=== PATIENT | female | born 1930 ===

== ENCOUNTER 2017-10-24 09:24 | Emergency (ER) | payer MEDICARE, OTHER ==
--- NOTE | 2017-10-24 11:39 | UC ---
UC General HPI - HPI Summary HPI Summary: pt visiting her son. she has been having frequent urination since last pm. denies fever, abdominal pain, burning with urination. no vaginal d/c. hx DM. avg BS is 120. - History of Current Complaint Stated Complaint: URINARY Time Seen by Provider: 10/24/17 11:26 Hx Obtained From: Patient, Family/[employer] Timing: Constant Pain Intensity: 0 Aggravating: nothing Alleviating: nothing Associated Signs & Symptoms: Negative: Abdominal Pain, Back Pain, Dysuria, Fever , Nausea - Allergy/Home Medications Allergies/Adverse Reactions: Allergies Allergy/AdvReac Type Severity Reaction Status Date / Time No Known Allergies Allergy Verified 10/24/17 11:37 Home Medications: Home Medications Brimonidine P 0.1%(NF) [Alphagan P 0.1% (NF)] 1 drop BOTH EYES TID 10/24/17 [ History Confirmed 10/24/17] Dorzolamide/Timolol OPTH (NF) [Cosopt (NF)] 1 drop BOTH EYES BEDTIME 10/24/17 [ History Confirmed 10/24/17] FLUoxetine CAP* [Prozac CAP*] 10 mg PO DAILY 10/24/17 [History Confirmed ] Glimepiride 1 mg PO DAILY 10/24/17 [History Confirmed 10/24/17] Lactic Acid CR 12% (NF) [Lac-Hydrin 12% (NF)] 12 % EX BID PRN 10/24/17 [History Confirmed 10/24/17] Pravastatin Sodium 40 mg PO DAILY 10/24/17 [History Confirmed 10/24/17] PMH/Surg Hx/FS Hx/Imm Hx Previously Healthy: No - Hx ca breast, colon and uterine. Endocrine History: Diabetes - Surgical History Surgical History: Yes - breast, uterine, colon. - Family History Known Family History: Positive: Unknown - Social History Occupation: Retired Lives: Alone Alcohol Use: None Substance Use Type: None Review of Systems Constitutional: Negative Skin: Negative Eyes: Negative ENT: Negative Respiratory: Negative Cardiovascular: Negative Gastrointestinal: Negative Genitourinary: Frequency Motor: Negative Neurovascular: Negative Musculoskeletal: Negative Neurological: Negative Psychological: Negative Is Patient Immunocompromised?: No All Other Systems Reviewed And Are Negative: Yes Physical Exam Triage Information Reviewed: Yes Appearance: Well-Appearing Vital Signs Reviewed: Yes Eye Exam: Normal ENT Exam: Normal Dental Exam: Normal Neck exam: Normal Neck: Positive: 1 Respiratory Exam: Normal Cardiovascular Exam: Normal Abdomen Description: Positive: Nontender, No Organomegaly, Soft. Negative: CVA Tenderness (R), CVA Tenderness (L) Bowel Sounds: Positive: Present Musculoskeletal Exam: Normal Neurological Exam: Normal Psychological Exam: Normal Skin Exam: Normal Diagnostics - Laboratory Diagnostic Studies Completed/Ordered: U/A= 1 protein, 2 glucose, 2 ketones, trace blood and 1+ leuks. culture pending. Course/Dx - Course Course Of Treatment: non toxic, no concern for DKA. given leuks on u/a, will cover with keflex. urine culture is pending. additional hx reveals pt pcp recently dheld her metformin due to nausea. she does continue her Glimepiride. pt / son advised to call pcp today and advise of her 265 BS and need for f/u within 3 days or sooner if worse. - Differential Dx - Multi-Symptom Provider Diagnoses: Urinary frequency, Possible UTI, Poorly controlled DM Discharge - Discharge Plan Condition: Stable Disposition: HOME Prescriptions: cephALEXin [Keflex] 500 mg PO BID 7 Days #14 capsule Patient Education Materials: Urinary Tract Infection in Older Adults (ED), Type 2 Diabetes in Adults (ED) Additional Instructions: FOLLOW UP WITH YOUR DOCTOR, DR PARKER IN [facility] [phone] WITHIN 3 DAYS. CALL TODAY TO ADVISE OF BS 265.
[2017-10-24 11:57] VITALS: BP 154/83
== END 2017-10-24 12:48 | disposition home or self-care (01) ==
LOC: UCCORT 09:24
DX: R35.0 Frequency of micturition (principal); E11.65 Type 2 diabetes mellitus with hyperglycemia; Z79.84 Long term (current) use of oral hypoglycemic drugs; Z85.3 Personal history of malignant neoplasm of breast; Z85.42 Personal history of malignant neoplasm of other parts of uterus; Z85.038 Personal history of other malignant neoplasm of large intestine
CPT/HCPCS: 81003; 87077; 87086; 99202; G0463